=== PATIENT | female | born 1995 | race Caucasian/White ===

== ENCOUNTER 2020-11-09 05:26 | Emergency (ER) | payer OTHER, MEDICAID ==
[~2020-11-09] VITALS: Ht 162.6 cm; Wt 63.5 kg
[2020-11-09 05:46] LABS: URINE BILIRUBIN NEGATIVE (Negative); URINE BLOOD NEGATIVE (Negative); URINE CLARITY CLEAR; URINE COLOR YELLOW; URINE GLUCOSE-RANDOM NEGATIVE (Negative); URINE KETONES NEGATIVE (Negative); URINE LEUKOCYTES-REFLEX NEGATIVE (Negative); URINE NITRITE-REFLEX NEGATIVE (Negative); URINE PROTEIN NEGATIVE (Negative); URINE SPECIFIC GRAVITY >= 1.030 (1.005-1.030); URINE UROBILINOGEN 0.2 E.U./dl (0.2-1.0)
[2020-11-09 05:54] LABS: ABSOLUTE BASOPHILS 0.1 thou/uL (0.0-0.2); ABSOLUTE EOSINOPHILS 0.1 thou/uL (0.0-0.7); ABSOLUTE LYMPHOCYTES 3.4 thou/uL (0.8-5.3); ABSOLUTE MONOCYTES 0.5 thou/uL (0.0-1.2); ABSOLUTE NEUTROPHILS 4.5 thou/uL (1.6-8.1); BASOPHILS 0.9 %; EOSINOPHILS 1.5 %; HEMATOCRIT 44.1 % (37.0-47.0); HEMOGLOBIN 14.6 gm/dL (12.0-15.0); LYMPHOCYTES 39.2 %; MCH 28.3 pg (26.0-34.0); MCV 85.7 fL (80.0-100.0); MONOCYTES 5.9 %; MPV 10.1 fl. (7.2-11.1); NUCLEATED RBCS 0 /100WBC; PLATELET COUNT* 245 thou/uL (150-400); POLYS 52.5 %; RBC 5.15 mil/uL (4.20-5.00); RDW-CV 12.3 % (10.5-14.5); WBC 8.6 thou/uL (4.0-11.0)
[2020-11-09 06:05] LABS: CALCIUM 9.3 mg/dL (8.5-10.1); CREATININE 0.8 mg/dL (0.6-1.3); POTASSIUM 3.1 mmol/L (3.5-5.1)
[2020-11-09 06:10] LABS: ALBUMIN 4.4 g/dL (3.4-5.0); TOTAL BILIRUBIN 0.6 mg/dL (<0.1-1.0); TOTAL PROTEIN 7.7 g/dL (6.4-8.2)
[2020-11-09] MEDS ORDERED: ZOFRAN ODT4 MG PO (09:00)
[2020-11-09 09:13] VITALS: BP 123/78
== END 2020-11-09 09:14 | disposition home or self-care (01) ==
LOC: M.ERS 05:26
PROVIDERS: Personal Emergency Response Attendant
DX: R10.31 Right lower quadrant pain (principal); Z88.1 Allergy status to other antibiotic agents

== ENCOUNTER 2021-08-19 08:44 | Emergency (ER) | payer OTHER, MEDICAID ==
[~2021-08-19] VITALS: Ht 162.6 cm; Wt 63.5 kg
[~2021-08-19 08:44] MED LIST: ZOFRAN ODT4 MG PO
[2021-08-19 10:31] LABS: INFLUENZA A ANTIGEN Positive (Negative); INFLUENZA B ANTIGEN Negative (Negative)
[2021-08-19] MEDS ORDERED: TAMIFLU75 MG PO (10:48)
[2021-08-19 11:05] VITALS: BP 123/74
--- NOTE | 2021-08-20 11:13 | EKG ---
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 : 1995 Requested By: Doc Cabrera Order Number: [id number] MD: Jordan Greco Measurements Intervals [place] Rate: 107 P: 91 IN: 115 QRS: 52 QRSD: 75 T: 14 QT: 317 QTc: 423 Interpretive Statements Sinus tachycardia Probable left atrial enlargement Minimal ST depression, diffuse leads Baseline wander in lead(s) V4,V5,V6 No previous ECG available for comparison Electronically Signed On 08-20-2021 11:13:07 INFORMATION TECHNOLOGY DATA ANALYST by Jordan Greco [email or web address] <ELECTRONICALLY SIGNED> By: Jordan Greco MD, [facility] 08/20/21 1113 0852 [id number] Jordan Greco MD, [facility] /EPI
== END 2021-08-19 11:05 | disposition home or self-care (01) ==
LOC: M.ERS 08:44
PROVIDERS: Emergency Medicine Emergency Medical Services
DX: J10.1 Influenza due to other identified influenza virus with other respiratory manifestations (principal); Z20.822 Contact with and (suspected) exposure to COVID-19; Z88.1 Allergy status to other antibiotic agents